=== PATIENT | male | born 1945 | race Caucasian/White ===

== ENCOUNTER → 2022-12-02 | Outpatient (CLI) | payer MEDICARE ==
[~2022-12-02] MED LIST: ASPI81CH; CLOP75; FURO20 PO; GLIP10; Humalog100 UNIT/1 SC; Inderal60 MG; Isosorbide Mono30 MG PO; LISI20; LIVALO2 MG PO; MELO7.5; METF500; METO50ER PO; NIAC500; Novolog Fl100 UNIT/1; PANT20; POTA10T; RED YEAST RICE600 MG; VENL150ER
[2022-12-04 19:02] LABS: Creatinine Urine 55.9 mg/dL (27.00-270.00); Protein, Urine Quantitative 13.5 mg/dL (0.0-11.9)
== END | disposition home or self-care (01) ==
LOC: LAB SHORT 15:07 → LAB FUT 11-30 08:30
PROVIDERS: Internal Medicine Nephrology
DX: N18.30 Chronic kidney disease, stage 3 unspecified (principal); D63.1 Anemia in chronic kidney disease; N25.81 Secondary hyperparathyroidism of renal origin; E55.9 Vitamin D deficiency, unspecified; E78.00 Pure hypercholesterolemia, unspecified; R76.9 Abnormal immunological finding in serum, unspecified; R94.5 Abnormal results of liver function studies; R94.6 Abnormal results of thyroid function studies
CPT/HCPCS: 81050; 82043; 82570; 84156

== ENCOUNTER 2024-01-17 11:08 | Inpatient (IN) | payer OTHER ==
[~2024-01-17] VITALS: Ht 177.8 cm; Wt 93.7 kg
[2024-01-17 11:55] LABS: BASOPHILS ABSOLUTE AUTO 0.02 K/mm3 (0.00-0.23); BASOPHILS PERCENT AUTO 0 % (0-2); EOSINOPHILS ABSOLUTE AUTO 0.21 K/mm3 (0.00-0.68); EOSINOPHILS PERCENT AUTO 3 % (0-6); Hematocrit 42.7 % (37.0-53.0); Hemoglobin 13.9 g/dL (13.5-17.5); IMMATURE GRAN ABSOLUTE AUTO 0.05 K/mm3 (0.00-0.10); IMMATURE GRAN PERCENT AUTO 1 % (0-1); LYMPHOCYTES ABSOLUTE AUTO 1.47 K/mm3 (0.84-5.20); LYMPHOCYTES PERCENT AUTO 21 % (21-46); MONOCYTES ABSOLUTE AUTO 0.45 K/mm3 (0.16-1.47); MONOCYTES PERCENT AUTO 6 % (4-13); Mean Corpuscular HGB 30.7 pg (26.0-34.0); Mean Corpuscular HGB Conc 32.6 g/dL (31.5-36.5); Mean Corpuscular Volume 94 fL (80-100); Mean Platelet Volume 9.9 fL (9.1-12.4); NEUTROPHILS ABSOLUTE AUTO 4.84 K/mm3 (1.96-9.15); NEUTROPHILS PERCENT AUTO 69 % (41-73); Platelet Count 268 K/mm3 (150-400); RDW Coefficient Variation 12.9 % (11.7-14.2); RDW Standard Deviation 44.2 fL (35.1-46.3); Red Blood Cell Count 4.53 M/mm3 (4.30-5.90); White Blood Cell Count 7.04 K/mm3 (4.00-11.30)
[2024-01-17 12:09] LABS: International Normalized Ratio 0.98; Prothrombin Time Results 10.3 Sec (9.7-11.5)
[2024-01-17 13:33] LABS: Albumin, Blood 2.6 g/dL (3.4-5.0); Albumin/Globulin Ratio 0.4 (0.8-1.8); Bilirubin, Total 0.5 mg/dL (0.1-1.0); Bun/Creatinine Ratio 12.8 (12.0-20.0); Calcium, Blood 10.5 mg/dL (8.5-10.1); Creatinine, Blood 1.88 mg/dL (0.60-1.20); Globulin, Blood 5.8 g/dL (2.2-4.0); Potassium, Blood 4.5 mmol/L (3.5-5.5); Total Protein, Blood 8.4 g/dL (6.4-8.2)
[2024-01-17] MEDS ORDERED: Acetaminophen 325 MG TABLET PO PRN (14:30)
[2024-01-17] MEDS ORDERED: Ondansetron HCl 2 MG / ML 2ML Vial IV PRN (14:30)
[2024-01-17] MEDS ORDERED: Magnesium Hydroxide Conc 10 ML UDC PO PRN (14:30)
[2024-01-17 14:55] LABS: Anti-Xa UFH, PHA Monitoring <0.10 IU/mL
[2024-01-17] MEDS ORDERED: Heparin Sodium,Porcine/0.5 NS 500 ML IV SCH (15:00)
[2024-01-17] MEDS ORDERED: Heparin Sodium 5000 Units/ML 1ML MDV IV ONE (15:00)
[2024-01-17] MEDS ORDERED: B-12 COMPL1000 MCG/2 IM (15:50)
[2024-01-17] MEDS ORDERED: FURO40 PO (15:51)
[2024-01-17] MEDS ORDERED: LOSA25 PO (15:51)
[2024-01-17] MEDS ORDERED: JARDIANCE10 MG PO (15:51)
[2024-01-17] MEDS ORDERED: VITAMIN D5000 UNIT PO (15:51)
[2024-01-17] MEDS ORDERED: METO25ER PO (15:51)
[2024-01-17] MEDS ORDERED: FAMO20 PO (15:51)
[2024-01-17] MEDS ORDERED: ROSU10TA PO (15:51)
[2024-01-17 16:12] VITALS: BP 141/66
[2024-01-17] MEDS ORDERED: Insulin Human Lispro 100 Units/ML 3ML Syringe SC SCH ×2 (16:30→17:30)
--- NOTE | 2024-01-17 18:30 | NUR ---
ARRIVAL TO UNIT. PT ARRIVED TO PCU AT 1600 VIA GURNEY AND ON RA, REPORT RECIEVED BY STUDENT RN AND THIS RN AT 1544 FROM ER NURSE AKIN. PT SLIDE FROM GURNEY TO BED VIA SLIDE SHEET AND 4 STAFF MEMBERS. PT A/OX AT TIME OF ARRIVAL. PT ORIENTED TO ROOM AND CALL LIGHT ALONG WITH PT DAUGHTER. HX GONE OVER WITH PT AND PT'S DAUGHTER. PT VSS AT TIME OF ARRIVAL. NO REPORT OF CHEST PAIN/PRESSURE. PT DOES NOT ENDORSE SOB AT TIME OF ARRIVAL. PT ABLE TO EXPRESS NEEDS. CALL LIGHT IN REACH, BED IN LOWEST POSITION. URINAL PROVIDED.
[2024-01-17 20:20] VITALS: BP 132/73
[2024-01-17] MEDS ORDERED: Insulin Glargine-Yfgn 100 Unit/mL 3 ML SYR SC SCH (21:00)
[2024-01-17] MEDS ORDERED: Gabapentin 100 MG Cap PO SCH (21:00)
[2024-01-17] MEDS ORDERED: Famotidine 20 MG Tab PO SCH (21:00)
[2024-01-17] MEDS ORDERED: Dose Adjust by Pharmacy XX STA (23:19)
[2024-01-17 23:47] VITALS: BP 138/63
[2024-01-18] VITALS (11 sets, daily range): BP systolic 112–143; BP diastolic 59–115
--- NOTE | 2024-01-18 05:35 | NUR ---
SHIFT SUMMARY NO ACUTE CHANGES THIS SHIFT. VSS. AXO4. ON HEPARIN GTT. NO ACUTE SOB OR LEG PAIN. SWELLING REMAINS TO L LEG, NO CHANGES. REMAINS ON RA. REMAINS W/OUT CP/PRESSURE. PT RESTING T/O NIGHT. PROVIDED MUCH EDUCATION REGARDING LABS, MEDICATIONS, POLICY/PROCEDURE, ETC PER PATIENT REQUEST.
[2024-01-18 06:03] LABS: BASOPHILS ABSOLUTE AUTO 0.03 K/mm3 (0.00-0.23); BASOPHILS PERCENT AUTO 1 % (0-2); EOSINOPHILS ABSOLUTE AUTO 0.27 K/mm3 (0.00-0.68); EOSINOPHILS PERCENT AUTO 4 % (0-6); Hematocrit 35.5 % (37.0-53.0); Hemoglobin 11.8 g/dL (13.5-17.5); IMMATURE GRAN ABSOLUTE AUTO 0.04 K/mm3 (0.00-0.10); IMMATURE GRAN PERCENT AUTO 1 % (0-1); LYMPHOCYTES ABSOLUTE AUTO 1.83 K/mm3 (0.84-5.20); LYMPHOCYTES PERCENT AUTO 30 % (21-46); MONOCYTES ABSOLUTE AUTO 0.51 K/mm3 (0.16-1.47); MONOCYTES PERCENT AUTO 8 % (4-13); Mean Corpuscular HGB 31.1 pg (26.0-34.0); Mean Corpuscular HGB Conc 33.2 g/dL (31.5-36.5); Mean Corpuscular Volume 94 fL (80-100); Mean Platelet Volume 9.8 fL (9.1-12.4); NEUTROPHILS ABSOLUTE AUTO 3.45 K/mm3 (1.96-9.15); NEUTROPHILS PERCENT AUTO 56 % (41-73); Platelet Count 229 K/mm3 (150-400); RDW Coefficient Variation 13.1 % (11.7-14.2); RDW Standard Deviation 44.6 fL (35.1-46.3); Red Blood Cell Count 3.79 M/mm3 (4.30-5.90); White Blood Cell Count 6.13 K/mm3 (4.00-11.30)
[2024-01-18 06:31] LABS: Bun/Creatinine Ratio 12.3 (12.0-20.0); Creatinine, Blood 1.3 mg/dL (0.60-1.20); Potassium, Blood 4.1 mmol/L (3.5-5.5)
--- NOTE | 2024-01-18 08:27 | NUR ---
01/17/24 2011 THIS RN OVERSAW AND REVIEWED STUDENT RN'S ASSESSMENT.
[2024-01-18] MEDS ORDERED: Empagliflozin 10 MG TAB PO SCH (09:00)
[2024-01-18] MEDS ORDERED: Metoprolol Succinate 25 MG TABCR PO SCH (09:00)
[2024-01-18] MEDS ORDERED: Aspirin 81 MG Chew PO SCH (09:00)
[2024-01-18] MEDS ORDERED: Cyanocobalamin 500 MCG Tab PO SCH (09:00)
[2024-01-18] MEDS ORDERED: Cholecalciferol 1000 Unit Tablet (=25MCG) PO SCH (09:00)
[2024-01-18] MEDS ORDERED: Losartan Potassium 25 MG Tab PO SCH (09:00)
[2024-01-18] MEDS ORDERED: Calcium Carbonate 500 MG Tab Chew PO ONE (13:10)
--- NOTE | 2024-01-18 14:52 | NUR ---
THIS RNOVERSAW AND REVIEWD STUDENT RN'S CHARTING AND ASSESSMENT.
--- NOTE | 2024-01-18 16:10 | NUR ---
DAUGHTER CALLED PER PT REQUEST AND UPDATED THAT PT IS PLANNING FOR PROCEDURE [id number].
--- NOTE | 2024-01-18 16:39 | NUR ---
MET WITH AKIN. HE WILL BE GOING TO HAVE A PROCEDURE DONE BY DR. CHRISTENSEN AT 1730. HE WAS ANXIOUS ABOUT THE PROCEDURE. I PROVIDED A THERAPUTIC VISIT AND LET HIM KNOW THAT I WOULD FOLLOW UP WITH HIM.
[2024-01-18] MEDS ORDERED: NS 1,000 ML IV ONE ×2 (17:27→17:33)
[2024-01-18] MEDS ORDERED: Heparin Sodium 1000 Units/ML 10ML MDV ONE (17:33)
[2024-01-18] MEDS ORDERED: Midazolam HCl 1MG / ML 2ML Vial ONE (17:36)
[2024-01-18] MEDS ORDERED: FentaNYL Citrate 50 MCG/ML 2 ML Injection ONE ×2 (17:36→18:56)
--- NOTE | 2024-01-18 18:30 | NUR ---
SHIFT SUMMARY PT IS A/OX4. NO ACUTE CHANGES DURING SHIFT. PT IS ON RA SATING AT HIGH 90'S. PT REPORTS NO FEELING OF SOB. OTHER VS STABLE THROUGHOUT SHIFT. NO REPORT OF CHEST PAIN OR CHEST PRESSURE. PT ENDORSED LEFT LEG PRESSURE THROUGHOUT SHIFT. ABLE TO EXPRESS NEEDS, CALLS APPROPRATELY. EXPRESSES SOME ANXIETY ABOUT TREATMENT PLAN AND MEDICATIONS. PT WENT TO HAVE PROCEDURE AT 1730 TO HAVE BLOOD CLOTS IN LEFT LEG REMOVED. DAUGHTER NOTIFIED AND WOULD LIKE TO BE NOTIFIED WHEN PROCEDURE IS COMPLETE.
--- NOTE | 2024-01-18 18:30 | NUR ---
1735, PT DOWN FOR PROCEDURE. 2 HC RN'S TRANSFERED PT. HEP GTT STOPPED AT TIS TIME, PHARMACY NOTIFIED. PROCEDURE AND BLOOD CONSENT PROVIDED TO HC RN'S THEY WERE RETRIEVING PT. PT TRANSFERED VIA HOSPITAL BED. PT ON RA.
--- NOTE | 2024-01-18 19:38 | NUR ---
ASSUMPTION OF CARE THIS RN ASSUMED CARE OF PT AT 1900, REPORT FROM TAMAR RN AND NURSING IP STUDENT. PT OUT TO [employer] WORKER FOR INTERVENTION AT THIS TIME. 193 - DR. CHRISTENSEN AND [employer] WORKER NOTIFIED THIS RN THAT PT'S INTERVENTION IS COMPLETE. NEW ORDERS TO RESUME HEPARIN GTT PER PHARMACY AT FULL BODY WEIGHT WHEN PT ARRIVES BACK TO ROOM. FLOW STASIS DEVICES TO BE REMOVED IN AM PER DR. CHRISTENSEN. PT TO BE BEDREST AT THIS TIME.
--- NOTE | 2024-01-18 20:32 | NUR ---
UPDATE PT RETURNED TO ROOM AT 1950 FROM ED TECH. PT A&O X4, CONVERSING AND RESPONDING APPROPRIATELY. PT WITH QUESTIONS ABOUT PROCEDURE AND "WHAT WAS ALL DONE" WELL NEXT STEPS. QUESTIONS ANSWERED AND EDUCATION PROVIDED. VSS; BP 141/71, HR 73, 97.9 TEMP, RR 18, AND 96% ON RA. PT DENIES CP/PRESSURE, SOB, DIZZINESS, N/V. PT REQUESTING SMALL SNACK AND DRINK. PT DENIES ISSUES GI/. PT WITH BILATERAL POPLITEAL FLOW STASIS DEVICES IN PLACE WITH CLEAR TRANSPARENT WINDOWN DRESSING ON TOP SCANT AMOUNT OF OOZE NOTED UNDER DRESSING. LLE REMAINS WITH SIGNIFICANT SWELLING AND EDEMA. PT REPORTS MODERATE DISCOMFORT POST PROCEDURE; DECLINES INTERVENTION AT THIS TIME. CBG 176. BEDSIDE REPORT FROM SHELLIE ED TECH RN. PT ABLE TO ELEVATE HOB INCREMENTLY AFTER ONE HOUR PER REPORT. CALL LIGHT IN REACH.
[2024-01-19] VITALS: BP 148/60
[2024-01-19 03:59] LABS: BASOPHILS ABSOLUTE AUTO 0.03 K/mm3 (0.00-0.23); BASOPHILS PERCENT AUTO 0 % (0-2); EOSINOPHILS ABSOLUTE AUTO 0.23 K/mm3 (0.00-0.68); EOSINOPHILS PERCENT AUTO 3 % (0-6); IMMATURE GRAN ABSOLUTE AUTO 0.05 K/mm3 (0.00-0.10); IMMATURE GRAN PERCENT AUTO 1 % (0-1); LYMPHOCYTES ABSOLUTE AUTO 2.31 K/mm3 (0.84-5.20); LYMPHOCYTES PERCENT AUTO 29 % (21-46); MONOCYTES ABSOLUTE AUTO 0.59 K/mm3 (0.16-1.47); MONOCYTES PERCENT AUTO 8 % (4-13); Mean Corpuscular HGB 31.3 pg (26.0-34.0); Mean Corpuscular HGB Conc 32.4 g/dL (31.5-36.5); Mean Corpuscular Volume 97 fL (80-100); Mean Platelet Volume 10.2 fL (9.1-12.4); NEUTROPHILS ABSOLUTE AUTO 4.64 K/mm3 (1.96-9.15); NEUTROPHILS PERCENT AUTO 59 % (41-73); Platelet Count 252 K/mm3 (150-400); RDW Coefficient Variation 13.1 % (11.7-14.2); RDW Standard Deviation 46.2 fL (35.1-46.3); Red Blood Cell Count 3.83 M/mm3 (4.30-5.90); White Blood Cell Count 7.85 K/mm3 (4.00-11.30)
[2024-01-19 04:01] VITALS: BP 124/62
[2024-01-19 04:18] LABS: Albumin, Blood 2.4 g/dL (3.4-5.0); Albumin/Globulin Ratio 0.5 (0.8-1.8); Bilirubin, Total 0.5 mg/dL (0.1-1.0); Creatinine, Blood 1.31 mg/dL (0.60-1.20); Globulin, Blood 4.4 g/dL (2.2-4.0); Potassium, Blood 4.4 mmol/L (3.5-5.5); Total Protein, Blood 6.8 g/dL (6.4-8.2)
[2024-01-19] MEDS ORDERED: Dose Adjust by Pharmacy XX STA ×2 (04:30→07:54)
--- NOTE | 2024-01-19 06:33 | NUR ---
SHIFT SUMMARY PT REMAINS A&O X4, PLEASANT AND COOPERATIVE WITH CARE. VSS; SBP 120 - 140'S, SR WITH BBB RATE IN 80'S, AFEBRILE, REMAINS ON RA WITH SPO2 GREATER THAN 95%. NO ACUTE EVENTS OVERNIGHT. PT DENIES CP/PRESSURE, SOB, DIZZINESS, N/V. PT WITH POPLITEAL FLOSTASIS BILATERALLY; SITE WNL, SCANT/SMALL AMOUNT OF OOZE NOTED UNDER DRESSING - UNCHANGED FROM START OF SHIFT. PT DENIES PAIN, SWELLING OF EXTREMITY STILL PRESENT. BR PER ORDERS POST PROCEDURE. PT NOW ABLE TO SIT AND STAND, AMBULATE IF NEEDED. PT USING URINAL INDEPENDENTLY WITH OVER 1000 MLS UOP THIS SHIFT. HEPARIN INFUSING PER DEC. PT DID HAVE SMALL SNACK LAST NIGHT, TOLERATING PO INTAKE. CALL LIGHT IN REACH AND PT ABLE TO VERBALIZE NEEDS. WILL UPDATE ONCOMING RN
[2024-01-19 07:16] VITALS: BP 127/71
[2024-01-19] MEDS ORDERED: Apixaban 5 MG Tab PO SCH (08:00)
[2024-01-19] MEDS ORDERED: ELIQUIS5 M2 PO (10:04)
[2024-01-19] MEDS ORDERED: ASPI81CH PO (10:05)
[2024-01-19] MEDS ORDERED: GABA100 PO (10:05)
[2024-01-19] MEDS ORDERED: INSULANI SC (10:06)
[2024-01-19] MEDS ORDERED: HUMALOG KW100 UNIT/1 SC (10:07)
--- NOTE | 2024-01-19 11:42 | NUR ---
DISCHARGE UPDATE DISCHARGE INSTRUCTIONS GONE OVER WITH PT AND PT'S GRANDSON AT 1126. PT DISCHARGED AT 1136 VIA WHEELCHAIR AND ON RA. PT ABLE TO TRANSFER SELF TO AND FROM WHEELCHAIR, TOLERATED WELL. PERSONAL BELONGINGS IN BAGS, ONE BAG LEFT BEHIND AND GRANDSON NOTIFIED, GRANDSON TO WATERWORKS OPERATOR LATER. DISCHARGE PACKET IN PT'S BAG THAT LEFT WITH HIM. STENT CARD IN DISCHARGE PACKE AND PT AWARE. BLOOD THINNER MEDICATION SENT WITH PT TO COVER FOR A WEEK, PT INSTRUCTED OF HOW MUCH TO TAKE AND WHEN, PT TAUGHT BACK.
== END 2024-01-19 11:39 | disposition home or self-care (01) | DRG 270 ==
LOC: ER 11:08 → PCU 11:09
PROVIDERS: Physician Assistant; ADMIT Internal Medicine
PROC: 06CN3ZZ Extirpation of Matter from Left Femoral Vein, Percutaneous Approach (ICD-10-PCS; principal; 2024-01-18)
PROC: 06CY3ZZ Extirpation of Matter from Lower Vein, Percutaneous Approach (ICD-10-PCS; 2024-01-18)
PROC: 067D3DZ Dilation of Left Common Iliac Vein with Intraluminal Device, Percutaneous Approach (ICD-10-PCS; 2024-01-18)
PROC: 067G3DZ Dilation of Left External Iliac Vein with Intraluminal Device, Percutaneous Approach (ICD-10-PCS; 2024-01-18)
PROC: B51C1ZA Fluoroscopy of Left Lower Extremity Veins using Low Osmolar Contrast, Guidance (ICD-10-PCS; 2024-01-18)
PROC: B54CZZA Ultrasonography of Left Lower Extremity Veins, Guidance (ICD-10-PCS; 2024-01-18)
DX: I82.412 Acute embolism and thrombosis of left femoral vein (principal); I26.99 Other pulmonary embolism without acute cor pulmonale; E11.40 Type 2 diabetes mellitus with diabetic neuropathy, unspecified; I10 Essential (primary) hypertension; E78.5 Hyperlipidemia, unspecified; I25.10 Atherosclerotic heart disease of native coronary artery without angina pectoris; U09.9 Post COVID-19 condition, unspecified; K44.9 Diaphragmatic hernia without obstruction or gangrene; Z88.5 Allergy status to narcotic agent; Z88.8 Allergy status to other drugs, medicaments and biological substances; Z79.899 Other long term (current) drug therapy; Z79.84 Long term (current) use of oral hypoglycemic drugs; Z79.82 Long term (current) use of aspirin; Z79.01 Long term (current) use of anticoagulants; Z79.4 Long term (current) use of insulin; Z86.73 Personal history of transient ischemic attack (TIA), and cerebral infarction without residual deficits; I25.2 Old myocardial infarction; Z98.890 Other specified postprocedural states; Z87.891 Personal history of nicotine dependence; Z74.01 Bed confinement status
CPT/HCPCS: 36415; 71260; 76937; 80048; 80053; 82947; 85025; 85347; 85520; 85610; 85730; 93005; 93010; 93308; 96365-59; 96366; 99152; 99153; 99285-25; A9270; C1725; C1753; C1757; C1769; C1887; C1894; G0378; J1644; J1815; J2250; J3010; J7030; Q9967